=== PATIENT | male | born 1990 | race Caucasian/White ===

== ENCOUNTER 2018-06-08 15:27 | Observation (INO) ==
[2018-06-08] MEDS ORDERED: Ketorolac Inj 30 MG/ML (IVP) Vial IV.PUSH ONE (17:40)
--- NOTE | 2018-06-08 17:43 | ED ---
HPI General Stated Complaint: back pain Time Seen by Provider: 06/08/18 17:26 Source: patient Mode of arrival: EMS Limitations: no limitations History of Present Illness HPI Narrative: The patient is a 27-year-old male who presents to the emergency department for intractable back pain. The patient states he developed back pain several weeks ago, was evaluated in the emergency on the 2017 and had an MRI of the lumbar spine with contrast to evaluate for an epidural abscess as the patient has a history of IV drug abuse. The patient's MRI revealed a herniated disc at the L5-S1 level which was compressing on the left S1 nerve root. The patient had a mandatory referral to neurosurgery, however, the neurosurgeon application integration specialist at that time was a locum. The patient states he has not followed up with a neurosurgeon on an outpatient basis and the pain is progressing. The pain radiates from the left back, radiates down the left leg to the toe. The pain is spasmatic, intermittent, and progressive. He has seen a chiropractor, however, he is having no relief of his pain. The patient also took steroids which did not alleviate the patient 's pain. The patient returns by EMS as he has been unable to ambulate for the last several weeks and has difficulty getting around the house at times. He has been walking with a cane intermittently. The patient states he has not used IV drugs since he was evaluated in the emergency department on May 25. Complaint: back pain Onset (ago): week(s) Duration: progressively worsening Similar Symptoms Previously: Yes Location: lumbar spine Severity: moderate Quality: sharp and spasming Radiation: left leg Severity scale (1-10): 8 Relieving factors: none Exacerbating factors: movement, sitting upright and walking Context: IV drug use Associated symptoms: denies other symptoms Treatments prior to arrival: prescription analgesics Related Data Home Medications Medication Instructions Recorded Confirmed Atrovent HFA 2 INHALATION Q4HR WHILE AWAKE NEB 05/25/18 amlodipine [Norvasc] 5 mg PO BID 05/25/18 05/25/18 hydrochlorothiazide 1 tab PO DAILY 05/25/18 05/25/18 metoprolol tartrate 50 mg PO BID 05/25/18 05/25/18 potassium chloride 05/25/18 05/25/18 promethazine 1 tab PO TID 05/25/18 05/25/18 Previous Rx's Medication Instructions Recorded prednisone See Label Instructions PO PER PKG 05/25/18 DIR #21 each Allergies Allergy/AdvReac Type Severity Reaction Status Date / Time No Known Allergies Allergy Uncoded 11/04/16 23:46 Review of Systems Except as stated in HPI: all other systems reviewed are negative Constitutional Denies fever(s) Cardiovascular Denies chest pain Respiratory Denies dyspnea Gastrointestinal Denies abdominal pain, Denies nausea and Denies vomiting Genitourinary Denies difficulty urinating and Denies urinary incontinence Musculoskeletal Reports back pain and Reports radiating pain into limb PMFSH Social History Social History Substance History: No History of Abuse Smoking Status: Unknown if ever smoked How Often Do You Have a Drink Containing Alcohol: Monthly or less Exam Narrative Exam Narrative: GENERAL: Awake, alert, nontoxic-appearing 27-year-old male who appears his stated age and is in no acute respiratory distress. SKIN: Focused skin assessment warm/dry. HEAD: Atraumatic. Normocephalic. EYES: No injection or drainage. ENT: No nasal bleeding or discharge. Mucous membranes pink and moist. NECK: Trachea midline. No JVD. CARDIOVASCULAR: Regular rate and rhythm. No murmur appreciated. RESPIRATORY: No accessory muscle use. Clear to auscultation. Breath sounds equal bilaterally. GASTROINTESTINAL: Abdomen soft, non-tender, nondistended. Back: No midline tenderness. MUSCULOSKELETAL: No obvious deformities. No clubbing. No cyanosis. No edema. Strength with plantarflexion left great toe and left ankle is 4+/5. Extension left knee in flexion left hip is 4+/5, right is 5+5. Sensation is intact to the lower extremities bilaterally. There is no clonus noted. Babinski is downward going. Ankle DTRs and knee DTRs are 2+ and symmetric. NEUROLOGICAL: Awake and alert. No obvious cranial nerve deficits. Motor grossly within normal limits. Normal speech. PSYCHIATRIC: Appropriate mood and affect; insight and judgment normal. Course Initial Documented Vital Signs Temperature 98.0 F 06/08/18 15:40 Pulse Rate 69 06/08/18 15:40 Respiratory Rate 16 06/08/18 15:40 Blood Pressure 132/83 06/08/18 15:40 Pulse Oximetry 99 06/08/18 15:40 Last Documented Vital Signs Temperature 98.0 F 06/08/18 15:40 Pulse Rate 69 06/08/18 15:40 Respiratory Rate 16 06/08/18 15:40 Blood Pressure 132/83 06/08/18 15:40 Pulse Oximetry 99 06/08/18 15:40 Medical Decision Making MDM Narrative Medical decision making narrative: The patient has progressing back pain over the last several weeks with a history of IV drug abuse. I reviewed the EMR and the patient's MRI with contrast that was performed on May 25 which reveals L5- S1 left sided disc herniation approximately 9 mm compressing on the. The patient has not been unable to work, has difficulty getting out of bed, and occasionally is able to ambulate with a cane. He does have progressing symptoms. I discussed the patient with case management regarding the patient's outpatient mandatory referral, she states unfortunately was placed to a locum. After discussion with case management she recommended 23 hour observation for intractable pain control with evaluation by neurosurgery, the patient may benefit from steroids, physical therapy, and evaluation by neurosurgery. The patient is comfortable with this plan of care. Differential Diagnosis Differential Diagnosis: Differential diagnosis includes back pain with radiculopathy, herniated disc, spinal stenosis, epidural abscess, psoas abscess , peripheral neuropathy, intractable back pain. Discharge Plan Discharge Disposition Patient Disposition: 30 Still Patient Discharge Condition Condition: Stable Physicians Team ED Provider: Santi Serrano Rxs /Orders / Referrals /Forms Prescriptions: No Action Atrovent HFA 2 Inhalation Q4HR WHILE AWAKE NEB RF: 0 promethazine 12.5 mg Tablet 1 tab PO TID RF: 0 amlodipine [Norvasc] 5 mg Tablet 5 mg PO BID RF: 0 metoprolol tartrate 50 mg Tablet 50 mg PO BID RF: 0 hydrochlorothiazide 25 mg Tablet 1 tab PO DAILY RF: 0 potassium chloride RF: 0 prednisone 5 mg tablets,dose pack See Label Instructions PO PER PKG DIR Qty: 21 RF: 0 Status ED Status: With Doctor
[2018-06-08] MEDS ORDERED: Morphine Inj 4 MG/ML Vial IV.PUSH ONE (17:53)
[2018-06-08] MEDS ORDERED: Potassium Chloride Inj 10 MEQ in Sod Chloride 0.9% Inj 1,000 ML IV.CONT SCH (18:00)
[2018-06-08 18:19] LABS: Baso % (Auto) 0.5 % (0.0-2.0); Eos # (Auto) 0.2 th/mm3 (0.0-0.4); Hematocrit 42.8 % (39.0-51.0); Hemoglobin 14.7 gm/dL (13.0-17.0); Lymph # (Auto) 2.2 th/mm3 (1.0-4.8); Lymph % (Auto) 33.5 % (9.0-44.0); Mean Corpuscular HGB Conc 34.4 % (32.0-36.0); Mean Corpuscular Hemoglobin 29.1 pg (27.0-34.0); Mean Corpuscular Volume 84.5 fL (80.0-100.0); Mean Platelet Volume 8.1 fL (7.0-11.0); Mono # (Auto) 0.6 th/mm3 (0.0-0.9); Mono % (Auto) 8.7 % (0.0-8.0); Neut # (Auto) 3.5 th/mm3 (1.8-7.7); Neut % (Auto) 54.3 % (16.0-70.0); Platelet Count 211 th/mm3 (150-450); Red Blood Count 5.07 mil/mm3 (4.50-5.90); Red Cell Distribution Width 13.4 % (11.6-17.2); White Blood Count 6.5 th/mm3 (4.0-11.0)
[2018-06-08 18:29] LABS: Activated Partial Thrombo Time 26.8 sec (24.3-30.1); INR 1.1 Ratio; Prothrombin Time 11.5 sec (9.8-11.6)
[2018-06-08 18:36] LABS: Anion Gap 10 meq/L (5-15); Blood Urea Nitrogen 14 mg/dL (7-18); Calcium 9.9 mg/dL (8.5-10.1); Chloride 104 meq/L (98-107); Glomerular Filtration Rate Greater Than 89 mL/min (>89); Glucose,Random 89 mg/dL (74-106); Potassium 3.8 meq/L (3.5-5.1); Sodium 138 meq/L (136-145)
[2018-06-08] MEDS ORDERED: Bisacodyl 10 MG Supp RECTAL PRN (20:42)
[2018-06-08] MEDS ORDERED: Acetaminophen 325 MG Tablet PO PRN (20:42)
[2018-06-08] MEDS ORDERED: Temazepam 15 MG Capsule PO PRN (20:42)
[2018-06-08 21:03] VITALS: RESP 16
[2018-06-08] MEDS: Senna/Docusate Sodium 8.6/50 MG Tablet PO SCH (21:45)
[2018-06-08] MEDS: Ketorolac Inj 30 MG/ML (IVP) Vial IV.PUSH PRN (21:46)
[2018-06-08] MEDS: Sod Chloride 0.9% Inj 1,000 ML IV.CONT SCH (21:48)
--- NOTE | 2018-06-08 23:03 | P.HP ---
History of Present Illness Service: [facility] Primary Care Physician: No Primary Care Physician Chief Complaint: back pain History of Present Illness: 27-year-old male with a past medical history significant for IV drug abuse presents to the emergency department for the evaluation of lower back pain. The patient reports that the pain started approximately 1 month ago. 2 weeks ago he was evaluated in the emerge on May 25 and he had an MRI of the lumbar spine to evaluate for epidural abscess. The patient's MRI revealed a herniated disc at the L5-S1 level which was compressing on the left S1 nerve root. The patient had a mandatory referral to neurosurgery however he has not followed up with a neurosurgeon on an outpatient basis. The patient reports this pain has been progressing. He reports that he can no longer stand secondary to the pain and muscle spasms. He has lower extremity weakness worse on the left. He denies any incontinence of bowel or bladder. No chest pain or shortness of breath. No fever/chills. No abdominal pain. No nausea/vomiting/diarrhea. Review of Systems All other systems reviewed negative except as stated in HPI PMF - History History Provided By: Patient, Medical Record - Medical History Medical History: Medical History (Last Reviewed 06/08/18 @ 21:28 by Dayana Lutz RN) Back injury Herniated disc - Surgical History Surgical History: Surgical History (Last Updated 06/08/18 @ 23:00 by Patricia Moser MD) No history of previous surgery - Family History Family History: Family History (Last Updated 06/08/18 @ 23:00 by Patricia Moser MD) Other No family history of cardiac disease - Tobacco History Second Hand Smoke Exposure: No Tobacco Use In Past 30 Days: Yes Smoking Status: Current every day smoker Tobacco Type: Cigarettes - Alcohol History How Often Do You Have a Drink Containing Alcohol: Monthly or less - Substance Use History Substance History: Past History - Substance Use Type Heroin Status: Early Remission Route Used: Intravenously Frequency: LAST USED May Reason for Use: Feels Good Amphetamines Status: Sustained Remission Route Used: Inhalation Frequency: LAST USED 3 YEARS AGO Crack/Cocaine Status: Sustained Remission Route Used: Inhalation Frequency: LAST USED 4 YEARS AGO Marijuana Status: Sustained Remission Route Used: By Mouth, Inhalation Frequency: LAST USED 8 YEARS AGO LSD, Mushrooms Type: LSD Status: Sustained Remission Route Used: By Mouth Frequency: LAST USED 6 YEARS AGO Methamphetamine Status: Sustained Remission Route Used: By Mouth Frequency: LAST USED 3 YEARS AGO Opiates Status: Early Remission Route Used: Intravenously Frequency: LAST USED 6 MONTHS AGO - Travel History Recent Travel in the [place] Within the Last 8 Weeks: No Recent Travel Out of the Country Within the Last 8 Weeks: No - Immunization History Tetanus Immunization: Unsure Hx Influenza Vaccine This Season: No Medications and Allergies Active Medications: Active Medications Acetaminophen (Tylenol) 650 mg PO Q4H PRN PRN Reason: Temp > 100.4 Al Hydroxide/Mg Hydroxide (Milk Of Magnesia Liq) 30 ml PO Q12H PRN PRN Reason: Mild Constipation Bisacodyl (Dulcolax Supp) 10 mg RECTAL DAILY PRN PRN Reason: SEVERE CONSITIPATION Cyclobenzaprine HCl (Flexeril) 10 mg PO Q8H PRN PRN Reason: muscle spasm Last Admin: 06/08/18 21:45 Dose: 10 mg Dexamethasone Sodium Phosphate (Decadron Inj) 4 mg IV.PUSH Q6HR [facility] Potassium Chloride 10 meq/ (Sodium Chloride) 1,005 mls @ 100 mls/hr IV.CONT .Q10H3M [facility] Last Admin: 06/08/18 21:25 Dose: Not Given Sodium Chloride (Ns Inj) 1,000 mls @ 75 mls/hr IV.CONT .[id number] [facility] Last Admin: 06/08/18 21:48 Dose: 75 mls/hr Ketorolac Tromethamine (Toradol Inj) 30 mg IV.PUSH Q6H PRN PRN Reason: pain 6-10 Stop: 06/13/18 20:40 Last Admin: 06/08/18 21:46 Dose: 30 mg Lactulose (Lactulose Liq) 30 ml PO DAILY PRN PRN Reason: SEVERE CONSITIPATION Ondansetron HCl (Zofran Odt) 4 mg PO Q6H PRN PRN Reason: NAUSEA OR VOMITING Senna/Docusate Sodium (Hermila-Colace) 1 tab PO BID [facility] Last Admin: 06/08/18 21:45 Dose: 1 tab Sennosides (Senokot) 17.2 mg PO Q12H PRN PRN Reason: Moderate Constipation Temazepam (Restoril) 15 mg PO HS PRN PRN Reason: INSOMNIA Allergies Allergy/AdvReac Type Severity Reaction Status Date / Time No Known Allergies Allergy Unverified 06/08/18 21:30 Home Medications Medication Instructions Recorded Confirmed Type No Known Home Medications 06/08/18 06/08/18 History Exam Vital signs: Vital Signs 06/08/18 15:40 06/08/18 17:34 06/08/18 21:03 Temperature 98.0 F 97.9 F 98.7 F Pulse Rate 69 73 89 Respiratory Rate 16 22 16 Blood Pressure 132/83 132/86 130/56 L Pulse Oximetry 99 95 99 Intake & Output 06/08/18 06/08/18 06/09/18 06:59 18:59 06:59 Weight 58.967 kg Other: Date of Last Bowel Movement 06/06/18 Narrative: Gen.: No acute distress Head: Normocephalic. Atraumatic. EENT: Pupils equal round and reactive to light. Nose without drainage. Airway intact. Throat without injection. Cardiovascular: Regular rate and rhythm. No murmurs, rubs or gallops. Respiratory: Lungs clear to auscultation bilaterally. No wheezes or rhonchi. Abdomen: Soft, nontender, nondistended. No peritoneal signs. Musculoskeletal: No gross deformities. No edema. Skin: No obvious rashes or erythema. Neuro: Sensory and motor grossly intact. Cranial nerves II through XII grossly intact. Right lower extremity strength 5/5. Left lower extremity strength at the hip and ankle is 4/5. Psych: Appropriate mood and affect Results - Labs CBC & Chem 7: 06/08/18 17:07 06/08/18 17:07 Labs: Laboratory Results - last 24 hr 06/08/18 06/08/18 06/08/18 17:07 17:07 17:07 WBC 6.5 RBC 5.07 Hgb 14.7 Hct 42.8 MCV 84.5 MCH 29.1 MCHC 34.4 RDW 13.4 Plt Count 211 MPV 8.1 Neut % (Auto) 54.3 Lymph % (Auto) 33.5 [place] % (Auto) 8.7 H Eos % (Auto) 3.0 Baso % (Auto) 0.5 Neut # (Auto) 3.5 Lymph # (Auto) 2.2 [place] # (Auto) 0.6 Eos # (Auto) 0.2 Baso # (Auto) 0.0 WBC Differential . Differential Comment Auto diff final PT 11.5 INR 1.1 APTT 26.8 Sodium 138 Potassium 3.8 Chloride 104 Carbon Dioxide 24.0 Anion Gap 10 BUN 14 Creatinine 0.88 Estimated GFR Greater than 89 Random Glucose 89 Calcium 9.9 Caprini VTE Risk Assessment Caprini VTE Risk Assessment: No/Low Risk (score <= 1) Caprini Risk Assessment Model: Point Value = 1 Point Value = 2 Point Value = 3 Point Value = 5 Age 41-60 Minor surgery BMI > 25 kg/m2 Swollen legs Varicose veins or History of unexplained or recurrent spontaneous Oral contraceptives or hormone replacement Sepsis (< 1 month) Serious lung disease, including pneumonia (< 1 month) Abnormal pulmonary function Acute myocardial infarction Congestive heart failure (< 1 month) History of inflammatory bowel disease Medical patient at bed rest Age 61-74 Arthroscopic surgery Major open surgery (> 45 min) Laparoscopic surgery (> 45 min) Malignancy Confined to bed (> 72 hours) Immobilizing plaster cast Central venous access Age >= 75 History of VTE Family history of VTE Factor V Leiden Prothrombin [id number] Lupus anticoagulant Anticardiolipin antibodies Elevated serum homocysteine Heparin-induced thrombocytopenia Other congenital or acquired thrombophilia Stroke (< 1 month) Elective arthroplasty Hip, pelvis, or leg fracture Acute spinal cord injury (< 1 month) Prophylaxis Regimen: Total Risk Factor Score Risk Level Prophylaxis Regimen 0-1 Low Early ambulation 2 Moderate Order ONE of the following: *Sequential Compression Device (SCD) *Heparin 5000 units SQ BID 3-4 Higher Order ONE of the following medications: *Heparin 5000 units SQ TID *Enoxaparin/Lovenox 40 mg SQ daily (WT < 150 kg, CrCl > 30 mL/min) *Enoxaparin/Lovenox 30 mg SQ daily (WT < 150 kg, CrCl > 10-29 mL/min) *Enoxaparin/Lovenox 30 mg SQ BID (WT < 150 kg, CrCl > 30 mL/min) AND/OR *Sequential Compression Device (SCD) 5 or more Highest Order ONE of the following medications: *Heparin 5000 units SQ TID (Preferred with Epidurals) *Enoxaparin/Lovenox 40 mg SQ daily (WT < 150 kg, CrCl > 30 mL/min) *Enoxaparin/Lovenox 30 mg SQ daily (WT < 150 kg, CrCl > 10-29 mL/min) *Enoxaparin/Lovenox 30 mg SQ BID (WT < 150 kg, CrCl > 30 mL/min) AND *Sequential Compression Device (SCD) Assessment and Plan - Plan Assessment/plan: 1. Herniated disc with associated weakness and low back pain Neurosurgery consulted, appreciate recommendations IV Decadron Toradol for pain 2. History of IV drug abuse Patient reports it has been 2 weeks since he last injected IV heroin Encouraged continued cessation FEN N.p.o. at midnight Electrolytes: Monitor and replete as needed NS at 75 cc/hour
[2018-06-09] MEDS: Ketorolac Inj 30 MG/ML (IVP) Vial IV.PUSH PRN (05:31)
[2018-06-09 07:22] LABS: Baso % (Auto) 0.1 % (0.0-2.0); Eos % (Auto) 0.1 % (0.0-4.0); Hematocrit 40.9 % (39.0-51.0); Hemoglobin 13.9 gm/dL (13.0-17.0); Lymph # (Auto) 0.8 th/mm3 (1.0-4.8); Lymph % (Auto) 16.3 % (9.0-44.0); Mean Corpuscular HGB Conc 33.9 % (32.0-36.0); Mean Corpuscular Hemoglobin 28.2 pg (27.0-34.0); Mean Platelet Volume 8.4 fL (7.0-11.0); Mono # (Auto) 0.1 th/mm3 (0.0-0.9); Mono % (Auto) 2.5 % (0.0-8.0); Neut # (Auto) 3.8 th/mm3 (1.8-7.7); Platelet Count 232 th/mm3 (150-450); Red Blood Count 4.92 mil/mm3 (4.50-5.90); Red Cell Distribution Width 13.2 % (11.6-17.2); White Blood Count 4.7 th/mm3 (4.0-11.0)
[2018-06-09 07:46] LABS: Anion Gap 9 meq/L (5-15); Blood Urea Nitrogen 16 mg/dL (7-18); Calcium 9.6 mg/dL (8.5-10.1); Carbon Dioxide 24.4 meq/L (21.0-32.0); Chloride 106 meq/L (98-107); Glomerular Filtration Rate Greater Than 89 mL/min (>89); Glucose,Random 125 mg/dL (74-106); Potassium 4.4 meq/L (3.5-5.1); Sodium 139 meq/L (136-145)
[2018-06-09] MEDS: Senna/Docusate Sodium 8.6/50 MG Tablet PO SCH (09:06)
--- NOTE | 2018-06-09 09:15 | P.PN ---
Subjective Interval history: Follow-up visit back pain, herniated disc associated with weakness left lower extremity, history of IVDA. Patient seen and examined today. Reports he is doing okay. Pain is manageable. States that he continues to have left lower extremity. Complains of numbness on and off but during exam states sensation is intact. Denies SOB/ dyspnea. Denies chest pain, palpitations, headaches, dizziness. Denies fevers, chills, n/v/d. Denies dysuria. Denies bowel and bladder incontinence. Physical Exam Vital signs: Vital Signs 06/08/18 15:40 06/08/18 17:34 06/08/18 21:03 Temperature 98.0 F 97.9 F 98.7 F Pulse Rate 69 73 89 Respiratory Rate 16 22 16 Blood Pressure 132/83 132/86 130/56 L Pulse Oximetry 99 95 99 06/09/18 00:00 06/09/18 04:00 06/09/18 07:42 Temperature 98.5 F 98.7 F 98.1 F Pulse Rate 76 68 71 Respiratory Rate 16 16 16 Blood Pressure 117/62 133/65 129/70 Pulse Oximetry 99 99 99 Intake & Output 06/08/18 06/09/18 06/09/18 18:59 06:59 18:59 Output Total 1100 / 1100 Balance -1100 / -1100 Weight 58.967 kg Output: Urine 1100 / 1100 Other: Date of Last Bowel Movement 06/06/18 # Bowel Movements 0 Narrative: GENERAL: This is a well-nourished, well-developed patient, in no apparent distress. SKIN: Warm and dry. HEENT: Normocephalic. Pupils equal round and reactive. Nose without bleeding. Airway patent. NECK: Trachea midline. No JVD. Supple. CARDIOVASCULAR: Regular rate and rhythm without murmurs, gallops, or rubs. RESPIRATORY: Clear to auscultation. Breath sounds equal bilaterally. No wheezes , rales, or rhonchi. GASTROINTESTINAL: Abdomen soft, non-tender, nondistended. Bowel Sounds normoactive x4. MUSCULOSKELETAL: Extremities without clubbing, cyanosis, or edema. Left lower extremity 4/5 muscle strength, good tone, good pulses. Weak plantar and dorsiflexion NEUROLOGICAL: Awake and alert. Oriented to time, place, person. Moves all extremities. Normal speech. Results - Labs CBC & Chem 7: 07/23/18 06:41 06/09/18 06:41 Laboratory Results - last 24 hr 06/08/18 06/08/18 06/08/18 17:07 17:07 17:07 WBC 6.5 RBC 5.07 Hgb 14.7 Hct 42.8 MCV 84.5 MCH 29.1 MCHC 34.4 RDW 13.4 Plt Count 211 MPV 8.1 Neut % (Auto) 54.3 Lymph % (Auto) 33.5 [place] % (Auto) 8.7 H Eos % (Auto) 3.0 Baso % (Auto) 0.5 Neut # (Auto) 3.5 Lymph # (Auto) 2.2 [place] # (Auto) 0.6 Eos # (Auto) 0.2 Baso # (Auto) 0.0 WBC Differential . Differential Comment Auto diff final PT 11.5 INR 1.1 APTT 26.8 Sodium 138 Potassium 3.8 Chloride 104 Carbon Dioxide 24.0 Anion Gap 10 BUN 14 Creatinine 0.88 Estimated GFR Greater than 89 Random Glucose 89 Calcium 9.9 06/09/18 06/09/18 06:41 06:41 WBC 4.7 RBC 4.92 Hgb 13.9 Hct 40.9 MCV 83.0 MCH 28.2 MCHC 33.9 RDW 13.2 Plt Count 232 MPV 8.4 Neut % (Auto) 81.0 H Lymph % (Auto) 16.3 [place] % (Auto) 2.5 Eos % (Auto) 0.1 Baso % (Auto) 0.1 Neut # (Auto) 3.8 Lymph # (Auto) 0.8 L [place] # (Auto) 0.1 Eos # (Auto) 0.0 Baso # (Auto) 0.0 WBC Differential . Differential Comment Auto diff final PT INR APTT Sodium 139 Potassium 4.4 Chloride 106 Carbon Dioxide 24.4 Anion Gap 9 BUN 16 Creatinine 0.87 Estimated GFR Greater than 89 Random Glucose 125 H Calcium 9.6 Assessment and Plan - Plan 27-year-old male with a past medical history significant for IV drug abuse presents to the emergency department for the evaluation of lower back pain. Herniated disc with associated weakness and low back pain -MRI revealed a herniated disc at the L5-S1 level which was compressing on the left S1 nerve root. -Neurosurgery consulted, appreciate recommendations -IV Decadron -Toradol for pain History of IV drug abuse -Patient reports it has been 2 weeks since he last injected IV heroin -Encouraged continued cessation DVT Prop SCD Code Status: Full Code Discussed Condition With: Patient, nursing Discharge Planning: Plan to DC home when cleared by neurosx
--- NOTE | 2018-06-09 09:49 | P.CONNS ---
History of Present Illness Service: Neurosurgery Consult date: 06/09/18 Requesting Physician: Santi Serrano Reason for Consult: L5-S1 disc herniation Primary Care Provider: No Primary Care Physician Family Provider: No Primary Care Physician Chief Complaint: back pain History of Present Illness: 27-year-old male who presents to the emergency department brought in by EMS for complaints of back pain radiating down the left lower extremity to foot. The patient states he developed back pain several weeks ago, was evaluated in the emergency on May 25 2018 and had an MRI of the lumbar spine with contrast to evaluate for an epidural abscess as the patient has a history of IV drug abuse. The patient's MRI revealed a herniated disc at the L5-S1 level which was compressing on the left S1 nerve root. The patient had a mandatory referral to neurosurgery, however, the neurosurgeon summer sessions director at that time was a locum. The patient states he has not followed up with a neurosurgeon on an outpatient basis and the pain is progressing. The pain radiates from the left back, radiates down the left leg to the toe. The pain is spasmatic, intermittent, and progressive. He has seen a chiropractor, however, he is having no relief of his pain. The patient also took steroids which did not alleviate the patient's pain. The patient returns by EMS as he has been unable to ambulate for the last several weeks and has difficulty getting around the house at times. He has been walking with a cane intermittently. The patient states he has not used IV drugs since he was evaluated in the emergency department on May 25. He denies any bowel bladder incontinence. Review of Systems All other systems reviewed negative except as stated in HPI Eyes: Denies blind spots, Denies blurry vision, Denies bulging eyes, Denies change in vision, Denies double vision, Denies discharge, Denies dry eyes, Denies floaters, Denies irritation, Denies itchy eyes, Denies loss of vision, Denies pain, Denies requires corrective lenses, Denies sensitivity to light, Denies other Ears, Nose, Mouth, and Throat: Denies abnormal hearing, Denies bleeding gums, Denies bad breath, Denies change in voice, Denies dental pain, Denies difficulty swallowing, Denies dizziness, Denies dry mouth, Denies ear discharge , Denies ear pain, Denies facial pain, Denies headache(s), Denies hearing loss, Denies hoarseness, Denies lip swelling, Denies nosebleed, Denies mouth lesions, Denies mouth pain, Denies nasal congestion, Denies nasal discharge, Denies nasal obstruction, Denies nasal trauma, Denies neck lump, Denies neck pain, Denies nose pain, Denies pain with swallowing, Denies poor balance, Denies post nasal drip, Denies ringing in the ears, Denies sinus pain, Denies sinus pressure , Denies sore throat, Denies throat swelling, Denies tongue swelling, Denies other Cardiovascular: Denies chest pain, Denies chest pain at rest, Denies chest pain with activity, Denies excessive sweating, Denies fainting, Denies fast heart rate, Denies foot swelling, Denies generalized swelling, Denies irregular heart rhythm, Denies leg pain with activity, Denies leg sores, Denies leg swelling, Denies lightheadedness, Denies radiating jaw, neck or arm pain, Denies rapid, pounding, or irregular heartbeat, Denies shortness of breath, Denies shortness of breath with activity, Denies shortness of breath when lying down, Denies shortness of breath causing sudden awakening, Denies slow heart rate, Denies other Respiratory: Denies change in phlegm color, Denies chest congestion, Denies cough, Denies coughing up blood, Denies excessive phlegm production, Denies pain on inspiration, Denies pain with cough, Denies shortness of breath, Denies shortness of breath with activity, Denies snoring, Denies stridor, Denies wheezing, Denies other Gastrointestinal: Denies abdominal pain, Denies belching, Denies black, tarry stools, Denies bloating, Denies bright, red blood in stools, Denies change in bowel habits, Denies constant urge to pass stool, Denies change in stools, Denies coffee ground vomit, Denies constipation, Denies cramping, Denies difficulty swallowing, Denies excessive passing of gas, Denies feeling full early, Denies heartburn, Denies incontinent of stools, Denies loose stools, Denies nausea, Denies pain with swallowing, Denies vomiting, Denies vomiting blood, Denies other Genitourinary: Denies blood in semen, Denies blood in urine, Denies decreased urination, Denies difficulty urinating, Denies difficulty with ejaculations, Denies erectile dysfunction, Denies genital lesions, Denies genital pain, Denies painful urination, Denies side pain, Denies frequent nighttime urination , Denies painful ejaculations, Denies penile discharge, Denies scrotal swelling , Denies testicle lump, Denies testicle pain, Denies urinary frequency, Denies urinary hesitancy, Denies urinary incontinence, Denies urinary urgency, Denies other Musculoskeletal: Reports back pain, Reports numbness, Reports radiating pain into limb, Reports tingling, Denies abnormal walking, Denies body aches, Denies decreased muscle mass, Denies deformity, Denies joint pain, Denies joint swelling, Denies limited joint movement, Denies loss of height, Denies muscle cramps, Denies muscle weakness, Denies neck pain, Denies stiffness, Denies other Skin/Breast: Denies acne, Denies bleeding lesions, Denies boil, Denies breast swelling, Denies breast skin changes, Denies breast pain, Denies breast lump, Denies change in breast shape, Denies change in hair, Denies change in skin color, Denies changing lesions, Denies dry skin, Denies excessive hair growth, Denies hair loss, Denies itching, Denies lesions, Denies nail changes, Denies new lesions, Denies nipple discharge, Denies non-healing lesions, Denies redness , Denies sensitivity to light, Denies rash, Denies skin pain, Denies skin ulcer , Denies sores, Denies stretch guevara, Denies unusual bruising, Denies wounds, Denies yellowing of the skin, Denies other Neurologic: Reports abnormal walking, Reports localized weakness, Reports radiating pain, Reports tingling, Reports tingling/numbness/burning sensations, Denies abnormal hearing, Denies abnormal movements, Denies abnormal speech, Denies behavioral changes, Denies burning sensations, Denies confusion, Denies dizziness, Denies fainting, Denies frequent falls, Denies headache(s), Denies lack of coordination, Denies loss of vision, Denies memory loss, Denies numbness , Denies other visual disturbances, Denies restless legs, Denies convulsions, Denies seizure-like activity, Denies sensory deficit, Denies tremor(s), Denies unsteadiness, Denies weakness, Denies other Psychiatric: Denies abnormal sleep pattern, Denies anxiety, Denies behavioral changes, Denies change in appetite, Denies change in sex drive, Denies confusion , Denies depression, Denies difficulty concentrating, Denies hearing things others do not hear, Denies hopelessness, Denies irritability, Denies lack of enjoyment, Denies memory loss, Denies mood swings, Denies panic attacks, Denies paranoia, Denies seeing things others do not see, Denies sensing things others do not sense, Denies tactile hallucinations, Denies thoughts of hurting/killing others, Denies thoughts of hurting/killing yourself, Denies other Endocrine: Denies cold intolerance, Denies excessive sweating, Denies flushing, Denies heat intolerance, Denies increased hunger, Denies increased thirst, Denies increased urination, Denies rapid, pounding, or irregular heartbeat, Denies other Hematologic/Lymphatic: Denies easy bleeding, Denies easy bruising, Denies enlarged lymph nodes, Denies other Allergic/Immunologic: Denies GI upset with certain foods, Denies hives, Denies itchy eyes, Denies lip swelling, Denies seasonal runny nose, Denies throat swelling, Denies tongue swelling, Denies wheezing, Denies other PMFSH - History History Provided By: Patient, Medical Record - Medical History Medical History: Medical History (Last Reviewed 06/09/18 @ 09:15 by Cruzito Calles) Back injury Herniated disc - Surgical History Surgical History: Surgical History (Last Reviewed 06/09/18 @ 09:15 by Cruzito Calles) No history of previous surgery - Family History Family History: Family History (Last Updated 06/08/18 @ 23:00 by Patricia Moser MD) Other No family history of cardiac disease - Tobacco History Second Hand Smoke Exposure: No Tobacco Use In Past 30 Days: Yes Smoking Status: Current every day smoker Tobacco Type: Cigarettes - Alcohol History How Often Do You Have a Drink Containing Alcohol: Monthly or less - Substance Use History Substance History: Past History - Substance Use Type Heroin Status: Early Remission Route Used: Intravenously Frequency: LAST USED May Reason for Use: Feels Good Amphetamines Status: Sustained Remission Route Used: Inhalation Frequency: LAST USED 3 YEARS AGO Crack/Cocaine Status: Sustained Remission Route Used: Inhalation Frequency: LAST USED 4 YEARS AGO Marijuana Status: Sustained Remission Route Used: By Mouth, Inhalation Frequency: LAST USED 8 YEARS AGO LSD, Mushrooms Type: LSD Status: Sustained Remission Route Used: By Mouth Frequency: LAST USED 6 YEARS AGO Methamphetamine Status: Sustained Remission Route Used: By Mouth Frequency: LAST USED 3 YEARS AGO Opiates Status: Early Remission Route Used: Intravenously Frequency: LAST USED 6 MONTHS AGO - Travel History Recent Travel in the [facility] Within the Last 8 Weeks: No Recent Travel Out of the Country Within the Last 8 Weeks: No - Immunization History Tetanus Immunization: Unsure Hx Influenza Vaccine This Season: No Medications and Allergies Active Medications: Active Medications Acetaminophen (Tylenol) 650 mg PO Q4H PRN PRN Reason: Temp > 100.4 Al Hydroxide/Mg Hydroxide (Milk Of Magnesia Liq) 30 ml PO Q12H PRN PRN Reason: Mild Constipation Bisacodyl (Dulcolax Supp) 10 mg RECTAL DAILY PRN PRN Reason: SEVERE CONSITIPATION Cyclobenzaprine HCl (Flexeril) 10 mg PO Q8H PRN PRN Reason: muscle spasm Last Admin: 06/09/18 05:34 Dose: 10 mg Dexamethasone Sodium Phosphate (Decadron Inj) 4 mg IV.PUSH Q6HR [facility] Last Admin: 06/09/18 05:31 Dose: 4 mg Sodium Chloride (Ns Inj) 1,000 mls @ 75 mls/hr IV.CONT .[id number] [facility] Last Admin: 06/08/18 21:48 Dose: 75 mls/hr Ketorolac Tromethamine (Toradol Inj) 30 mg IV.PUSH Q6H PRN PRN Reason: pain 6-10 Stop: 06/13/18 20:40 Last Admin: 06/09/18 05:31 Dose: 30 mg Lactulose (Lactulose Liq) 30 ml PO DAILY PRN PRN Reason: SEVERE CONSITIPATION Ondansetron HCl (Zofran Odt) 4 mg PO Q6H PRN PRN Reason: NAUSEA OR VOMITING Senna/Docusate Sodium (Hermila-Colace) 1 tab PO BID [facility] Last Admin: 06/09/18 09:06 Dose: 1 tab Sennosides (Senokot) 17.2 mg PO Q12H PRN PRN Reason: Moderate Constipation Temazepam (Restoril) 15 mg PO HS PRN PRN Reason: INSOMNIA Allergies Allergy/AdvReac Type Severity Reaction Status Date / Time No Known Allergies Allergy Unverified 06/08/18 21:30 Home Medications Medication Instructions Recorded Confirmed Type No Known Home Medications 06/08/18 06/08/18 History Exam Vital signs: Vital Signs 06/08/18 15:40 06/08/18 17:34 06/08/18 21:03 Temperature 98.0 F 97.9 F 98.7 F Pulse Rate 69 73 89 Respiratory Rate 16 22 16 Blood Pressure 132/83 132/86 130/56 L Pulse Oximetry 99 95 99 06/09/18 00:00 06/09/18 04:00 06/09/18 07:42 Temperature 98.5 F 98.7 F 98.1 F Pulse Rate 76 68 71 Respiratory Rate 16 16 16 Blood Pressure 117/62 133/65 129/70 Pulse Oximetry 99 99 99 Intake & Output 06/08/18 06/09/18 06/09/18 18:59 06:59 18:59 Output Total 1100 / 1100 Balance -1100 / -1100 Weight 58.967 kg Output: Urine 1100 / 1100 Other: Date of Last Bowel Movement 06/06/18 # Bowel Movements 0 - Constitutional mild distress - Routine HEENT Exam Head: Present: normocephalic, atraumatic Eye: Present: EOMI, PERRL ENT: Present: mucous membranes moist, oropharynx clear, nares patent, external ear normal - Routine Neck Exam Present: supple, full ROM - Routine Respiratory Exam Present: CTA bilaterally - Routine Cardiovascular Exam Present: RRR, S1, S2 - Routine Abdominal Exam Present: soft, normoactive bowel sounds - Routine Extremities Exam Present: full ROM, pulses intact, normal capillary refill - Routine Skin Exam Present: intact, warm, normal turgor - Routine Neurological Exam Present: oriented X3, CN II-XII intact, motor deficit, plantar reflex, normal speech There is some giveaway weakness in the left leg but no focal deficit noted. Appreciates light touch sensation bilaterally in the lower extremities. Has difficulty walking because the pain aggravates. - Routine Psychiatric Exam Present: normal affect, normal thought process, cooperative, good insight Results - Laboratory Findings CBC and BMP: 06/09/18 06:41 06/09/18 06:41 Abnormal lab findings: Abnormal Labs 06/08/18 06/09/18 06/09/18 17:07 06:41 06:41 Neut % (Auto) 81.0 H Ramsey % (Auto) 8.7 H Lymph # (Auto) 0.8 L Random Glucose 125 H Assessment and Plan - Assessment (1) Lumbar disc herniation with radiculopathy Code(s): M51.16 - Intervertebral disc disorders with radiculopathy, lumbar region Status: Acute (2) Intravenous drug abuse Code(s): F19.10 - Other psychoactive substance abuse, uncomplicated Status: Chronic - Plan 27-year-old gentleman with a three-week history of low back pain and left L5 radiculopathy with a mild L5-S1 disc herniation. He has not tried any conservative treatment measures. I recommended pain control and physical therapy. We will also the interventional radiologist proceed with an epidural steroid injection to hopefully provide some pain relief so he can participate with physical therapy. Surgical intervention is reserved for patients who have exhausted all conservative treatment measures. Given a history of IV drug abuse he will not do well with surgery but will consider if conservative measures have failed. Discussed with patient who understands and is in agreement.
[2018-06-09 11:35] VITALS: O2SAT 100
--- NOTE | 2018-06-09 16:05 | IR ---
EXAM DATE: 06/09/2018 3:29 PM EDT AGE/SEX: 27 years / Male INDICATIONS: Patient with intractable back pain. CLINICAL DATA: This is the patient's initial encounter. Patient reports that signs and symptoms have been present for 3 weeks and indicates a pain score of 8/10. MEDICAL/SURGICAL HISTORY: . HERNIATED DISC,back injury,smoker . no history COMPARISON: No prior exams available for comparison. FLUORO TIME (min): 0.3 IMAGE SERIES: 1 ACCESS SITE: Left S1 CONTRAST (cc): 1 cc Omnipaque (iohexol) 300 MEDICATION(S): 1cc triamcinolone (Kenalog) IA 1 cc Lidocaine IA RESPONSE: Pain Score Pre Procedure: 8/10 Pain Score Post Procedure: 9/10 . . PROCEDURE: 1. Fluoroscopically guided epidural injection. The risks, benefits and alternatives to the procedure were explained and verbal and written consent w as obtained. The site was prepped in sterile fashion. Full sterile technique was used, including ca p, mask, sterile gloves and gown and a large sterile sheet. Hand hygiene and 2% chlorhexidine and/or betadine/alcohol prep was utilized per protocol for cutaneous antisepsis. The skin and subcutaneous tissues were infiltrated with local anesthetic solution. With fluoroscopic guidance, a 22-gauge spinal needle was introduced to the left first sacral foramen. Contrast injection was performed to verify good positioning in the epidural space. A therapeutic mix ture consisting of lidocaine and Kenalog was injected. The patient's preprocedure pain and post proce dure pain levels were recorded. CONCLUSION: Uncomplicated fluoroscopically guided left S1 therapeutic nerve root/epidural analgesic and steroid i njection. Electronically signed by: Rodney Varela MD 06/09/2018 4:03 PM EDT
[2018-06-09 16:30] VITALS: BP 130/73; PULSE 74; TEMP 98.3
[2018-06-09] MEDS: Sod Chloride 0.9% Inj 1,000 ML IV.CONT SCH (18:22)
== END 2018-06-09 19:43 | disposition home or self-care (01) ==
LOC: NEDA 15:27 → NEPD 15:27 → NEPGCP 15:27
PROVIDERS: ADMIT Internal Medicine; ATTEND Internal Medicine